=== PATIENT | male | born 1945 | race Caucasian/White ===

== ENCOUNTER 2017-03-31 05:36 | Inpatient (IN) | payer MEDICARE ==
[2017-03-31] VITALS (10 sets, daily range): BP systolic 126–156; BP diastolic 56–94
[~2017-03-31] VITALS: Ht 180.3 cm; Wt 99.3 kg
[2017-03-31] MEDS ORDERED: ASPIR 8181 MG PO (05:49)
[2017-03-31 06:01] LABS: ABSOLUTE BASOPHILS 0.1 thou/uL (0.0-0.2); ABSOLUTE EOSINOPHILS 0.2 thou/uL (0.0-0.7); ABSOLUTE LYMPHOCYTES 2.4 thou/uL (0.8-5.3); ABSOLUTE MONOCYTES 0.8 thou/uL (0.0-1.2); ABSOLUTE NEUTROPHILS 3.6 thou/uL (1.6-8.1); EOSINOPHILS 3.5 %; HEMOGLOBIN 13.6 gm/dL (14.0-18.0); LYMPHOCYTES 33.6 %; MCH 29.1 pg (26.0-34.0); MCHC 33.1 g/dL (28.0-37.0); MCV 87.8 fL (80.0-100.0); MONOCYTES 11.5 %; MPV 7.4 fl. (7.2-11.1); NUCLEATED RBCS 0 /100WBC; PLATELET COUNT* 214 thou/uL (150-400); POLYS 50.4 %; RBC 4.66 mil/uL (4.50-6.00); RDW-CV 14.3 % (10.5-14.5); WBC 7.1 thou/uL (4.0-11.0)
[2017-03-31 06:17] LABS: ANION GAP 8 mmol/L (7-16); BUN 18 mg/dL (7-18); CALCIUM 8.6 mg/dL (8.5-10.1); CHLORIDE 104 mmol/L (98-107); CO2 27 mmol/L (21-32); CREATININE 1.1 mg/dL (0.6-1.3); GLUCOSE 238 mg/dL (70-99); POTASSIUM 3.8 mmol/L (3.5-5.1); SODIUM 139 mmol/L (136-145)
[2017-03-31 06:27] LABS: ALBUMIN 3.6 g/dL (3.4-5.0); ALKALINE PHOSPHATASE 54 U/L (46-116); LIPASE 185 U/L (73-393); NT-PRO BRAIN NAT PEPTIDE 54 pg/mL (<300); SGOT 20 U/L (15-37); SGPT 43 U/L (30-65); TOTAL BILIRUBIN 0.2 mg/dL (<0.1-1.0); TOTAL PROTEIN 7.1 g/dL (6.4-8.2); TROPONIN-I LEVEL <0.06 ng/mL (<0.06)
--- NOTE | 2017-03-31 12:02 | EKG ---
[place] [address] ELECTROCARDIOGRAM REPORT Name: NICOLE GONZALEZ Room: [address] IN [facility]#: [id number] Admission: 03/31/17 Attend Phys: Nicole Atkins MD Discharge: Date of : 45 Report #: [id number] THIS REPORT FOR: //name// [facility] ED Test Date: 2017-03-31 Test Time: 06:07:41 Pat Name: NICOLE GONZALEZ Department: Room: [facility] Gender: Medical Sociologist: LIZZY Joe : 1945 Requested By: Kaia Guadalupe Order Number: [id number] Reading MD: Ceferino Fontaine Measurements Intervals [place] Rate: 82 P: 73 IN: 180 QRS: 63 QRSD: 104 T: 108 QT: 334 QTc: 390 Interpretive Statements Sinus arrhythmia Ventricular premature complex Probable left atrial enlargement Borderline repolarization abnormality No previous ECG available for comparison Electronically Signed On 03-31-2017 12:02:26 HEAD SAWYER AUTOMATIC by Ceferino Fontaine [email or web address] <ELECTRONICALLY SIGNED> By: Ceferino Fontaine MD, [facility] 03/31/17 1202 6 6 Ceferino Fontaine MD, [facility] /EPI
--- NOTE | 2017-03-31 12:02 | EKG ---
[place] [address] ELECTROCARDIOGRAM REPORT Name: NICOLE GONZALEZ Room: [address] ADM IN 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: LIZZY Joe : 1945 Requested By: Kaia Guadalupe Order Number: [id number] MD: Ceferino Fontaine Measurements Intervals [place] Rate: 90 P: 39 FL: 182 QRS: 43 QRSD: 107 T: 122 QT: 338 QTc: 414 Interpretive Statements Sinus rhythm Ventricular trigeminy Probable inferior infarct, recent Lateral leads are also involved No previous ECG available for comparison Electronically Signed On 03-31-2017 12:02:18 ROTARY DRIER FEEDER by Ceferino Fontaine [email or web address] <ELECTRONICALLY SIGNED> By: Ceferino Fontaine MD, [facility] 03/31/17 1202 0540 0540 Ceferino Fontaine MD, [facility] /EPI
[2017-03-31 13:03] LABS: CHOLESTEROL 217 mg/dL (<200); HDL CHOLESTEROL 43 mg/dL (>40); LDL CHOLESTEROL 135 mg/dL (<100); TRIGLYCERIDE 199 mg/dL (<150); VLDL 40 mg/dL (<40)
[2017-03-31 13:07] LABS: SERUM ASSESSMENT Clear
[2017-04-01] VITALS (8 sets, daily range): BP systolic 124–189; BP diastolic 58–85
[2017-04-01 03:53] LABS: HEMATOCRIT 39.4 % (42.0-52.0); HEMOGLOBIN 13.3 gm/dL (14.0-18.0); MCHC 33.7 g/dL (28.0-37.0); MCV 85.9 fL (80.0-100.0); MPV 7.7 fl. (7.2-11.1); RBC 4.58 mil/uL (4.50-6.00); WBC 10.8 thou/uL (4.0-11.0)
[2017-04-01 04:23] LABS: ALBUMIN 3.4 g/dL (3.4-5.0); CALCIUM 8.2 mg/dL (8.5-10.1); CREATININE 1.1 mg/dL (0.6-1.3); POTASSIUM 4.3 mmol/L (3.5-5.1); TOTAL BILIRUBIN 0.5 mg/dL (<0.1-1.0); TOTAL PROTEIN 6.8 g/dL (6.4-8.2)
[2017-04-01 04:49] LABS: TROPONIN-I LEVEL 10.46 ng/mL (<0.06)
--- NOTE | 2017-04-01 12:32 | EKG ---
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: : 1945 Requested By: Cesar Malhotra Order Number: [id number] Reading MD: Ceferino Fontaine Measurements Intervals [place] Rate: 84 P: 59 [place]: 181 QRS: 38 QRSD: 102 T: 162 QT: 343 QTc: 406 Interpretive Statements Sinus rhythm Ventricular trigeminy Probable left atrial enlargement Nonspecific repol abnormality, diffuse leads Baseline wander in lead(s) II,V4,V6 Compared to ECG 03/31/2017 06:07:41 Sinus arrhythmia no longer present Electronically Signed On 04-01-2017 12:32:12 CORDUROY CUTTING SUPERVISOR by Ceferino Fontaine [email or web address] <ELECTRONICALLY SIGNED> By: Ceferino Fontaine MD, FAC 04/01/17 1232 0931 Ceferino Fontaine MD, FAC /EPI
--- NOTE | 2017-04-01 12:33 | EKG ---
[place] [address] ELECTROCARDIOGRAM REPORT Name: NICOLE GONZALEZ Room: [address] ADM IN [facility]#: [id number] Admission: 03/31/17 Attend Phys: Nicole Atkins MD Discharge: Date of : 45 Report #: [id number] THIS REPORT FOR: //name// [facility] Test Date: 2017-03-31 Test Time: 18:05:18 Pat Name: NICOLE GONZALEZ Department: Room: [facility] Gender: M Picker Operator: : 1945 Requested By: Mode Gomez Order Number: [id number] Reading MD: Ceferino Fontaine Measurements Intervals [place] Rate: 92 P: 53 NM: 182 QRS: 44 QRSD: 110 T: 88 QT: 364 QTc: 451 Interpretive Statements Sinus rhythm Ventricular premature complex Probable left atrial enlargement Borderline T abnormalities, lateral leads Compared to ECG 03/31/2017 06:07:41 T-wave abnormality now present Sinus arrhythmia no longer present Electronically Signed On 04-01-2017 12:33:22 MILL TENDER by Ceferino Fontaine [email or web address] <ELECTRONICALLY SIGNED> By: Ceferino Fontaine MD, FAC 04/01/17 1233 1805 1805 Ceferino Fontaine MD, [facility] /EPI
--- NOTE | 2017-04-01 12:34 | EKG ---
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: : 1945 Requested By: Cesar Malhotra Order Number: [id number] Reading MD: Ceferino Fontaine Measurements Intervals [place] Rate: 85 P: 80 ME: 186 QRS: 51 QRSD: 100 T: 141 QT: 360 QTc: 428 Interpretive Statements Sinus rhythm Ventricular bigeminy Probable left atrial enlargement Borderline repolarization abnormality Compared to ECG 03/31/2017 06:07:41 Sinus arrhythmia no longer present Electronically Signed On 04-01-2017 12:33:50 SAW REPAIRER by Ceferino Fontaine [email or web address] <ELECTRONICALLY SIGNED> By: Ceferino Fontaine MD, [facility] 04/01/17 1233 2253 2253 Ceferino Fontaine MD, [facility] /EPI
--- NOTE | 2017-04-01 12:34 | EKG ---
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 Service Representative Teacher: KYLE : 1945 Requested By: Mode Gomez Order Number: [id number] Reading MD: Ceferino Fontaine Measurements Intervals [place] Rate: 86 P: 80 PA: 190 QRS: 35 QRSD: 99 T: 115 QT: 377 QTc: 451 Interpretive Statements Sinus rhythm Ventricular bigeminy Left atrial enlargement Nonspecific repol abnormality, lateral leads Minimal ST elevation, inferior lead 3 only Compared to ECG 03/31/2017 06:07:41 ST (T wave) deviation now present Sinus arrhythmia no longer present Electronically Signed On 04-01-2017 12:34:33 CUPOLA CHARGER INSULATION by Ceferino Fontaine [email or web address] <ELECTRONICALLY SIGNED> By: Ceferino Fontaine MD, [facility] 04/01/17 1234 0744 0744 Ceferino Fontaine MD, [facility] /EPI
[2017-04-02] VITALS (8 sets, daily range): BP systolic 97–141; BP diastolic 78–94
[2017-04-02 03:56] LABS: CALCIUM 8.6 mg/dL (8.5-10.1); POTASSIUM 4.2 mmol/L (3.5-5.1)
--- NOTE | 2017-04-02 09:31 | CARD ---
[address] [address] CARDIAC CATH REPORT Name: NICOLE GONZALEZ Room: [address] IN [facility]#: [id number] Admission: 03/31/17 Attend Phys: Nicole Atkins MD Discharge: Date of : 45 Report #: [id number] THIS REPORT FOR: //name// APPROVED REPORT Patient Details The patient is a 71 year-old male Event Personnel Mode Gomez Pest Controller, Katherine Uriostegui RN RN, Nicole Sol Monitor, Hai Salvador Scrub Indication Non-STEMI (>12 hrs to = 24 hrs), Chest pain Risk Factors Hypercholesterolemia, Coronary Artery DiseaseHypertension, History of noncompliance with medications and follow-up with cardiology. Previous Procedures/Diagnoses Previous CABGPrevious PCI, Previous GA Procedure Narrative The patient was brought urgently to the Cardiac Catheterization Laboratory and was prepped and draped in a sterile manner. The right femoral was infiltrated with 1% Lidocaine subcutaneous anesthesia. A 6fr Ultimum Sheath sheath was inserted into the . Coronary angiography was performed using coronary diagnostic catheters. The right coronary system was accessed and visualized with a Diagnostic - JR4 catheter. The left coronary system was accessed and visualized with a Diagnostic - JL4 catheter. The left ventricle was accessed and visualized with a Diagnostic - PIGTAIL catheter. The patient tolerated the procedure well and there were no complications associated with the procedure. Intraoperative Conscious Sedation Sedation start time: 2006 Case end Time: 2107 Fentanyl 50 mcg Fluoro Time: 19.9 minutes Dose: DAP [id number] cGycm2 3244 mGy Contrast Type and Amount: Visipaque 270 [place] [address] CARDIAC CATH REPORT Name: NICOLE GONZALEZ Room: [address]#: [id number] Admission: 03/31/17 Attend Phys: Nicole Atkins MD Discharge: Date of : 45 Report #: [id number] The patient's coronary anatomy is right dominant. Diagnostic Cath Left Main Patent vessel, with mild disease at the distal segment. LAD There is a severe obstruction in the proximal segment, 70%. The MAGALLANES graft has a 70% stenosis at the distal anastomotic site to the distal LAD. There is competitive flow coming from the capitan grande band LAD as well as retrograde flow from the first diagonal bypass. Diagonal 1 There is a patent radial artery bypass with an end-to-side anastomosis to the proximal diagonal artery. After the anastomosis, there is both retrograde and antegrade blood flow. Circumflex There is a severe proximal stenosis, 90%, supplies a moderate-sized second OM vessel. OM1 Severe stenosis at the proximal segment. There appears to be of vein graft that was previously stented, apparently grafted to an OM1 vessel. This vein graft is totally occluded within the stented region. OM2 Patent vessel, with no flow-limiting lesions. Right Coronary Dominant vessel with a total occlusion. R PDA There is a patent vein graft with an end-to-side anastomosis to the PDA. RPLV Occluded vessel. The mid and distal segments fill via collateral circulation from RV marginals and left circumflex artery. Left Ventriculography Left Ventriculography was not performed. An LVEDP was measured and there is no gradient across the outflow tract. Hemodynamics The aortic pressure is 145/77 mmHg with a mean of 101 mmHg. The left ventricular pressure is 145/8 mmHg with a mean of mmHg. The left ventricular end diastolic pressure is 29 mmHg. PCI Technique Lesion Anticoagulation was achieved with Angiomax. Patient was preloaded with Angiomax IV 14 ml. Percutaneous coronary intervention was performed on the saphenous vein graft to OM1 - previously stented. The lesion stenosis prior to intervention was 19649% with YANELI 0 flow. A 6Fr AR 1 Guide Catheter was used to engage the ostium. A IG: Luge Wire 180 Interventional Guidewire was used to cross the lesion. BALLOON DILATION A Balloon catheter Trek RX 2.5 X 12 was inserted and inflated up to [facility] [address] [place] [address] CARDIAC CATH REPORT Name: NICOLE GONZALEZ Room: [address] IN [facility]#: [id number] Admission: 03/31/17 Attend Phys: Nicole Atkins MD Discharge: Date of : 45 Report #: [id number] 10.00atm for 17seconds. Additional Inflation: 10.00atm for 10seconds. Additional Inflation: 10.00atm for 11seconds. 10 FANNIE FOR 9 SEC 10 FANNIE FOR 9 SEC Final angiography reveals 100 % stenosis with YANELI 1 flow. COMMENTS After the initial balloon dilatation throughout the vein graft, injections revealed diminished flow, with heavy clot burden throughout the vein graft. The patient at this time was pain free, with onset of symptoms greater than 15 hours prior to presentation to the cath lab radiological technologist. It was decided to discontinue this case and treat medically. PCI Technique Lesion 2 Percutaneous Coronary Intervention was performed on the proximal circumflex artery segment. Patient was preloaded with Angiomax IV 14 ml. The lesion stenosis prior to intervention was 90% with YANELI 3 flow. A 6FR XB 3.0 100CM Guide Catheter was used to engage the ostium. A IG: Luge Wire 180 Interventional Guidewire was used to cross the lesion. Balloon Dilation A Balloon catheter Trek RX 2.5 X 12 was inserted and inflated up to 12.00atm for 13seconds. Stent Deployment A stent Xience Alpine RX 2.5X15 was inserted and inflated up to 16.00atm for 14seconds. Post Stent Deployment Balloon Dilation A Balloon catheter NC Trek RX 2.75 X 12 was inserted and inflated up to 18.00atm for 18seconds. Additional Inflation: 18.00atm for 16seconds. Final angiography reveals 0 % stenosis with YANELI 3 flow. Conclusion 1. Successful insertion of a drug-eluting stent into the proximal left circumflex artery. 2. There is a MAGALLANES graft with an end-to-side anastomosis to the distal LAD, with an apparent 70% stenosis at the anastomotic site. 3. Patent radial artery bypass with an end-to-side anastomosis to the first diagonal artery, there is retrograde flow down the LAD. [address] [address] CARDIAC CATH REPORT Name: NICOLE GONZALEZ Room: [facility] IN .R.#: [id number] Admission: 03/31/17 Attend Phys: Nicole Atkins MD Discharge: Date of : 45 Report #: [id number] 4. Patent SVG with an end-to-side anastomosis to the PDA. 5. Failed angioplasty of a total occlusion of SVG, previously stented, probably supplying the first OM. The capitan grande band vessel appears to be filled via collateral circulation from diagonal arteries. 6. Aggressive risk factor management. <ELECTRONICALLY SIGNED> By: Mode Gomez MD 04/02/17930 0 0Mode Gomez MD /INF
--- NOTE | 2017-04-02 15:57 | 2DMMODE ---
[facility] [address] [place] [address] 2 D/M-MODE ECHOCARDIOGRAM Name: NICOLE GONZALEZ Room: [address] IN .R.#: [id number] Admission: 03/31/17 Attend Phys: Nicole Atkins, Discharge: Date of : 45 Date of Service: 04/02/17 1556 Report #: [id number] THIS REPORT FOR: //name// APPROVED REPORT Study performed: 04/02/2017 14:28:50 EXAM: Comprehensive 2D, Doppler, and color-flow Echocardiogram BSA: 2.19 Other Information Study Quality: Good Risk Factors: Cardiac Risk Factors: HTN, Hyperlipidemia Indications Non STEMI Left Ventricle Left ventricle is grossly normal size. There is abnormal segmental wall motion with subtle distal septal and anteroapical hypokinesis There is normal left ventricular wall thickness. Left ventricular systolic function is borderline. LVEF is 50-55%. Grade I - abnormal relaxation pattern. Right Ventricle The right ventricle is normal size. The right ventricular systolic function is normal. Atria The left atrium size is normal. Aortic Valve Mild aortic valve sclerosis. No aortic regurgitation is present. There is no aortic valvular stenosis. Mitral Valve The mitral valve is normal in structure. Mild mitral regurgitation. Tricuspid Valve The tricuspid valve is normal in structure. [place] [address] 2 D/M-MODE ECHOCARDIOGRAM Name: NICOLE GONZALEZ Room: [address] IN M.R.#: [id number] Admission: 03/31/17 Attend Phys: Nicole Atkins, Discharge: Date of : 45 Date of Service: 04/02/17 1556 Report #: [id number] Great Vessels The aortic root is normal in size. IVC is normal in size and collapses >50% with inspiration. Pericardium There is no pericardial effusion. <Conclusion> Left ventricle is grossly normal size. There is normal left ventricular wall thickness. Left ventricular systolic function is borderline. LVEF is 50-55%. Grade I - abnormal relaxation pattern. The right ventricle is normal size. The left atrium size is normal. Mild aortic valve sclerosis. The mitral valve is normal in structure. Mild mitral regurgitation. IVC is normal in size and collapses >50% with inspiration. There is no pericardial effusion. There is abnormal segmental wall motion with subtle distal septal and anteroapical hypokinesis <ELECTRONICALLY SIGNED> By: Omkar Al MD, [facility] 04/02/17 1556 1556 1556 Omkar Al MD, FACC /INF
[2017-04-02] MEDS ORDERED: ATORVASTATIN CA40 MG PO (16:21)
[2017-04-02] MEDS ORDERED: PLAVIX 75 MG TA75 M1 PO (16:23)
[2017-04-02] MEDS ORDERED: ZETIA10 MG PO (16:28)
[2017-04-02] MEDS ORDERED: TOPROL XL25 MG PO (16:30)
[2017-04-02] MEDS ORDERED: NITROSTAT0.4 M1 SUBLING (16:33)
--- NOTE | 2017-04-04 08:46 | CON ---
[address] [address] CONSULTATION Name: NICOLE GONZALEZ Room: [address] IN [facility]#: [id number] Admission: 03/31/17 Attend Phys: Nicole Atkins MD Discharge: 04/02/17 Date of : 45 Report #: [id number] THIS REPORT FOR: //name// CC: Nicole Brar DATE OF SERVICE: 03/31/2017 CHIEF COMPLAINT: Chest pain. HISTORY OF PRESENT ILLNESS: The patient is a 71-year-old male who was awoken up out of bed at 0400 this morning with a sudden onset of central chest discomfort radiating to his left arm and shoulder. It was severe, 10/10. He did not have any nitroglycerin at home, but by the time he got to the Emergency Room, it had calmed down. It was associated with mild diaphoresis, but no shortness of breath. He has been feeling relatively well, but more fatigued over the last several days. 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 Separately, he has also had left shoulder surgery and it was unsure if his symptoms were initially related to this. He presents in a sinus rhythm with small Q waves in the inferior leads and normal ST segments. He presents with no GI symptoms of nausea, vomiting, hematemesis, or melena. He denies edema. He is without orthopnea or PND. PAST MEDICAL HISTORY: He initially had what sounds like an out of hospital arrest while in [place] and he had a PCI only and then had another event shortly thereafter within the next month or 2 and details of this are not available, then he had a separate non-STEMI and was transferred to [facility] where he underwent a 4-vessel CABG. In 2015, he did have a PCI to vessels not known at [place]. Throughout all of this, he has never had significant cardiovascular followup. He only takes aspirin. He has a history of untreated hyperlipidemia. HE HAD BEEN ON A STATIN, BUT DEVELOPED MUSCLE CRAMPS AND STOPPED TAKING THEM. He is not known to be a diabetic. He does not generally [place] [address] CONSULTATION Name: NICOLE GONZALEZ Room: [address]#: [id number] Admission: 03/31/17 Attend Phys: Nicole Atkins MD Discharge: 04/02/17 Date of : 45 Report #: [id number] ALLERGIES: INCLUDE ACETAMINOPHEN, HYDROCODONE, AND CORTISONE. SOCIAL HISTORY: He is . He is a former smoker for about 40 pack years. He drinks infrequently. FAMILY HISTORY: Positive for high blood pressure. PAST SURGICAL HISTORY: Prior inguinal hernia, left shoulder surgery, umbilical hernia. REVIEW OF SYSTEMS: GENERAL: No fevers or chills. PULMONARY: No shortness of breath, no history of asthma or emphysema. GASTROINTESTINAL: No nausea, vomiting, hematemesis or melena. GENITOURINARY: No dysuria or hematuria. MUSCULOSKELETAL: Positive joint pain, neck pain. ENDOCRINE: He is not known to be a diabetic. Denies polyuria or polydipsia. He denies history of thyroid disease. PSYCHIATRIC: No depression or anxiety. NEUROLOGIC: Denies numbness or weakness. SKIN: No rashes. PHYSICAL EXAMINATION: VITAL SIGNS: Blood pressure is 126/81, pulse 82, respiratory rate 16, O2 sats 100% 2 liters. GENERAL: This is a pleasant elderly male. He is alert, oriented, in no apparent distress. NECK: Supple. No jugular venous distention. Upstrokes are normal. CARDIOVASCULAR: Regular. I could not hear a murmur. There is no S3. LUNGS: Clear to auscultation. ABDOMEN: Soft, nontender. EXTREMITIES: No peripheral edema. SKIN: Warm. NEUROLOGIC: There are no focal deficits. PSYCHIATRIC: The patient has appropriate mood and affect. ELECTROCARDIOGRAM: Initial ECG demonstrates sinus rhythm with very subtle ST-segment elevation in lead 3 only with no reciprocal changes and normal ST segments. There is a very subtle ST-segment depression in lead V1. Second ECG shows normal ST segments, PVCs. ECG this morning demonstrates sinus rhythm with PVCs and normal ST segments. T-wave inversion in leads aVL. LABORATORY DATA: Cardiac troponin level was 0.06 x 1 set. Sodium is 139, potassium is 3.8, chloride is 104, CO2 is 27, BUN is 18, creatinine is 1.1. Troponin I is 0.06. BNP is 54. Hemoglobin is 13.6, white blood cell count is [facility] [address] [place] [address] CONSULTATION Name: NICOLE GONZALEZ Room: [address]#: [id number] Admission: 03/31/17 Attend Phys: Nicole Atkins MD Discharge: 04/02/17 Date of : 45 Report #: [id number] 7.1. Chest x-ray shows no acute cardiopulmonary disease. CTA: No evidence of dissection or PE. IMPRESSION: 1. Unstable angina. His ECG showed no diagnostic ST-segment abnormalities and his cardiac troponin levels are normal today, but we will check his second set right now and his symptoms were partially improved with nitroglycerin, so I will start him on an IV nitroglycerin drip and IV heparin. 2. Coronary artery disease, status post coronary artery bypass grafting. He apparently does not follow regularly with Cardiology. We will try to obtain some records from [facility]. Seemingly, that is where he had had his last care. 3. Hyperlipidemia. This has been untreated throughout the duration of his cardiovascular history. He would probably benefit from intermittent statin use perhaps once or twice weekly. We will check a lipid profile. 4. Degenerative joint disease. Theoretically, this could also be causing his symptoms, but given his acute presentation, I would have to think that his symptoms seem predominantly cardiac in nature. Depending on his cardiac biomarkers, it will be determined whether or not we will proceed with the cardiac catheterization or stress testing, but more likely cardiac catheterization given his risk factor profile. <ELECTRONICALLY SIGNED> By: Ceferino Fontaine MD, FACC 04/04/17 0846 1042 [id number] Fontaine MD, FACC /nt
[2017-04-17] MEDS ORDERED: POTASSIUM20 PO (10:08)
[2017-04-17] MEDS ORDERED: LASIX 20 MG TAB20 MG PO (10:08)
[2017-07-24] MEDS ORDERED: NITROGLYCERIN0.4 MG SUBLING (13:57)
[2017-07-24] MEDS ORDERED: IMDUR 30 MG TAB30 M1 PO (20:52)
[2017-07-24] MEDS ORDERED: METOPROLOL SUCC25 M1 PO (20:52)
== END 2017-04-02 17:18 | disposition home or self-care (01) | DRG 246 ==
LOC: M.ERS 05:36 → M.TBA-ER 07:36 → M.3W 07:36 → M.2W 08:32 → M.ICU 21:12 → M.3W 04-01 12:15
PROVIDERS: Emergency Medicine; Internal Medicine Cardiovascular Disease; ADMIT Internal Medicine
DX: I21.4 Non-ST elevation (NSTEMI) myocardial infarction (principal); I50.33 Acute on chronic diastolic (congestive) heart failure; I25.110 Atherosclerotic heart disease of native coronary artery with unstable angina pectoris; J44.9 Chronic obstructive pulmonary disease, unspecified; K21.9 Gastro-esophageal reflux disease without esophagitis; I25.5 Ischemic cardiomyopathy; I11.9 Hypertensive heart disease without heart failure; E78.5 Hyperlipidemia, unspecified; M19.90 Unspecified osteoarthritis, unspecified site; I25.2 Old myocardial infarction; Z95.5 Presence of coronary angioplasty implant and graft; Z87.891 Personal history of nicotine dependence; Z88.8 Allergy status to other drugs, medicaments and biological substances; Z86.74 Personal history of sudden cardiac arrest; Z88.6 Allergy status to analgesic agent; Z79.82 Long term (current) use of aspirin

== ENCOUNTER 2017-04-18 07:12 | Observation (INO) | payer MEDICARE ==
[2017-04-18] VITALS (13 sets, daily range): BP systolic 99–144; BP diastolic 48–78
[~2017-04-18] VITALS: Ht 180.3 cm; Wt 91.0 kg
--- NOTE | ~2017-04-18 | H ---
[address] [address] HISTORY AND PHYSICAL Name: NICOLE GONZALEZ Room: [address] Abdelrahman Adrian#: [id number] Admission: 04/18/17 Attend Phys: Omkar Al MD, Discharge: 04/19/17 Date of : 45 Report #: [id number] THIS REPORT FOR: //name// Please refer to the History and Physical performed in the physician's office. By: [id number] Records Staff ENMANUEL /CHANA
[~2017-04-18 07:12] MED LIST: ASPIR 8181 MG PO; ATORVASTATIN CA40 MG PO; LASIX 20 MG TAB20 MG PO; NITROSTAT0.4 M1 SUBLING; PLAVIX 75 MG TA75 M1 PO; POTASSIUM20 PO; TOPROL XL25 MG PO; ZETIA10 MG PO
[2017-04-18 07:53] LABS: HEMATOCRIT 41.9 % (42.0-52.0); HEMOGLOBIN 14.3 gm/dL (14.0-18.0); MCHC 34.1 g/dL (28.0-37.0); MCV 85.2 fL (80.0-100.0); MPV 7.9 fl. (7.2-11.1); RBC 4.91 mil/uL (4.50-6.00); RDW-CV 13.9 % (10.5-14.5); WBC 8.1 thou/uL (4.0-11.0)
[2017-04-18 08:03] LABS: APTT 26.2 Seconds (25.0-31.3); INR 1.1; PROTIME 10.5 Seconds (9.20-11.50)
[2017-04-18 08:04] LABS: ANION GAP 14 mmol/L (7-16); BUN 30 mg/dL (7-18); CALCIUM 9.1 mg/dL (8.5-10.1); CHLORIDE 99 mmol/L (98-107); CO2 23 mmol/L (21-32); CREATININE 1.6 mg/dL (0.6-1.3); GLUCOSE 246 mg/dL (70-99); POTASSIUM 3.9 mmol/L (3.5-5.1); SODIUM 136 mmol/L (136-145)
[2017-04-18 08:08] LABS: ALBUMIN 4.1 g/dL (3.4-5.0); ALKALINE PHOSPHATASE 62 U/L (46-116); CHOLESTEROL 103 mg/dL (<200); HDL CHOLESTEROL 46 mg/dL (>40); LDL CHOLESTEROL 23 mg/dL (<100); SGOT 26 U/L (15-37); SGPT 40 U/L (30-65); TC:HDL 2.2 Ratio (Not establshd); TOTAL BILIRUBIN 0.6 mg/dL (<0.1-1.0); TOTAL PROTEIN 8.1 g/dL (6.4-8.2); TRIGLYCERIDE 170 mg/dL (<150); VLDL 34 mg/dL (<40)
[2017-04-18 08:09] LABS: SERUM ASSESSMENT Clear
--- NOTE | 2017-04-18 16:15 | NUR ---
PT HAS MINIMAL BLEEDING AT THE CATH SITE. CHANGED DRESSING AND PT IS ABLE TO MOVE LEG AT THIS TIME. NS STILL INFUSING AT 125ML/HR.
[2017-04-18 17:08] LABS: GLYCOHEMOGLOBIN (HGB A1C) 7.1 % (4.8-5.6)
--- NOTE | 2017-04-18 17:57 | EKG ---
[place] [address] ELECTROCARDIOGRAM REPORT Name: NICOLE GONZALEZ Room: [address] IN R.#: [id number] Admission: 04/18/17 Attend Phys: Omkar Al MD, Discharge: Date of : 45 Report #: [id number] THIS REPORT FOR: //name// [facility] Test Date: 2017-04-18 Test Time: 07:56:58 Pat Name: NICOLE GONZALEZ Department: Room: [facility] Gender: M Neurology Hospitalist: : 1945 Requested By: Omkar Al Order Number: [id number] Reading MD: Omkar Al Measurements Intervals [place] Rate: 92 P: 70 [place]: 193 QRS: 41 QRSD: 111 T: -18 QT: 396 QTc: 490 Interpretive Statements Sinus rhythm Ventricular bigeminy Borderline T abnormalities, inferior leads Compared to ECG 04/01/2017 07:44:06 T-wave abnormality now present Atrial abnormality no longer present Early repolarization no longer present ST (T wave) deviation no longer present Electronically Signed On 04-18-2017 17:57:15 CDT by Omkar Al [email or web address] <ELECTRONICALLY SIGNED> By: Omkar Al MD, [facility] 04/18/17 1757 0756 0756 Omkar Al MD, [facility] /EPI
--- NOTE | 2017-04-18 18:01 | EKG ---
[place] [address] ELECTROCARDIOGRAM REPORT Name: NICOLE GONZALEZ Room: [address] [place] R.#: [id number] Admission: 04/18/17 Attend Phys: Omkar Al MD, Discharge: Date of : 45 Report #: [id number] THIS REPORT FOR: //name// [facility] Test Date: 2017-04-18 Test Time: 13:43:54 Pat Name: NICOLE GONZALEZ Department: Room: [facility] Gender: M Inking Machine Tender: : 1945 Requested By: Omkar Al Order Number: [id number] Camilla MD: Omkar Al Measurements Intervals [place] Rate: 54 P: 89 [place]: 197 QRS: 48 QRSD: 114 T: -12 QT: 393 QTc: 373 Interpretive Statements Sinus rhythm Ventricular bigeminy Borderline intraventricular conduction delay Borderline T wave abnormalities Minimal ST elevation, anterior leads Baseline wander in lead(s) I,II,V2,V3,V4,V5,V6 Compared to ECG 04/01/2017 07:44:06 T-wave abnormality now present Atrial abnormality no longer present Early repolarization no longer present ST (T wave) deviation still present Electronically Signed On 04-18-2017 18:01:35 CDT by Omkar Al [email or web address] <ELECTRONICALLY SIGNED> By: Omkar Al MD, [facility] 04/18/17 1801 1343 1343 Omkar Al MD, [facility] /EPI
[2017-04-19] VITALS: BP 104/57
[2017-04-19 04:00] VITALS: BP 140/56
[2017-04-19 04:31] LABS: HEMATOCRIT 36.8 % (42.0-52.0); HEMOGLOBIN 12.6 gm/dL (14.0-18.0); MCH 29.2 pg (26.0-34.0); MCHC 34.3 g/dL (28.0-37.0); MCV 85.2 fL (80.0-100.0); RBC 4.31 mil/uL (4.50-6.00); RDW-CV 14.2 % (10.5-14.5)
[2017-04-19 04:40] LABS: CALCIUM 8.2 mg/dL (8.5-10.1); CREATININE 1.2 mg/dL (0.6-1.3); POTASSIUM 4.6 mmol/L (3.5-5.1); TROPONIN-I LEVEL 0.56 ng/mL (<0.06)
--- NOTE | 2017-04-19 04:59 | NUR ---
ASSUMED CARE OF PT AT 1900 ALERT AND ORIENTED X4, VS AND ASSESSMENT STABLE. R GROIN SURGICAL WOUND CDI WITHOUT HEMATOMA. NSR WITH SOME PVC'S. PT DENIED ANY COMPLAINTS AND SLEPT THROUGH THE NIGHT. WILL CONTINUE PLAN OF CARE.
[2017-04-19 09:00] VITALS: BP 124/68
[2017-04-19 10:00] VITALS: BP 124/68
--- NOTE | 2017-04-19 11:45 | NUR ---
ASSUMED PT CARE AT 0700 PT IS ALERT AND ORIENTED X 4 PT DENIES PAIN OR SOA ON RA, PT IS UP AD MUNIR PT IS NOT A FALL RISK, PT RIGHT GROIN SITE IS CLEAN DRY INTACT PT IS SR PVC ON THE MONITOR, CARDIOLOGY SAW PT AND OK FOR PT TO DISCHARGE, IV REMOVED WILL CONTINUE TO MONITOR
--- NOTE | 2017-04-19 15:21 | EKG ---
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: MR : 1945 Requested By: Omkar Al Order Number: [id number] Reading MD: Omkar Al Measurements Intervals [place] Rate: 73 P: 69 [place]: 188 QRS: 35 QRSD: 115 T: -16 QT: 402 QTc: 443 Interpretive Statements Sinus rhythm Multiple ventricular premature complexes Nonspecific intraventricular conduction delay Possible inferior infarct, age indeterminate Compared to ECG 04/18/2017 13:43: ST (T wave) deviation no longer present Electronically Signed On 04-19-2017 15:21:14 CDT by Omkar Al [email or web address] <ELECTRONICALLY SIGNED> By: Omkar Al MD, [facility] 04/19/17 1521 0532 0532 Omkar Al MD, [facility] /EPI
--- NOTE | 2017-04-19 16:33 | CARD ---
[address] [address] CARDIAC CATH REPORT Name: LISANICOLE Hina Room: [address] Abdelrahman Adrian#: [id number] Admission: 04/18/17 Attend Phys: Omkar Al MD, Discharge: 04/19/17 Date of : 45 Report #: [id number] THIS REPORT FOR: //name// APPROVED REPORT Study performed: 04/18/2017 07:37:54 Patient Details Patient Status: Out-Patient Room #: The patient is a 71 year-old male Event Personnel Omkar Al Renal Social Worker, Katherine Uriostegui RN Dough Sheeter, Zaida Soriano RTR ScrubJens Anthony ARRT (R) Monitor Procedures Performed SHAHZAD Place w/wo Plasty Single LAD; left heart catheterization selective coronary arteriography graft study and percutaneous coronary intervention Indication Unstable angina Risk Factors Hypercholesterolemia, Hypertension Previous Procedures/Diagnoses Previous PCI, Previous CA Admission/Lab Medications/Medications given during procedure Angiomax bolus and infusion Procedure Narrative The patient was brought electively to the Cardiac Catheterization Laboratory and was prepped and draped in a sterile manner. A [place] 6 FR sheath was inserted into the Right Femoral Artery. Coronary angiography was performed using coronary diagnostic catheters. The right coronary system was accessed and visualized with a Diagnostic JR 4 catheter. The left coronary system was accessed and visualized with a Diagnostic JL 4 catheter. The left ventricle was accessed and visualized with a Diagnostic Angled Pig catheter. Closure device was deployed with a Fr Angioseal. The patient tolerated the procedure well and there were no complications associated with the procedure. Intra[place] [address] CARDIAC CATH REPORT Name: NICOLE GONZALEZ Room: [address] Abdelrahman Adrian#: [id number] Admission: 04/18/17 Attend Phys: Omkar Al MD, Discharge: 04/19/17 Date of : 45 Report #: [id number] Sedation start time: 9:55 Case end Time: 11:02 Versed 1 mg Fluoro Time: 18.4 minutes Dose: DAP 803978 cGycm2 2453 mGy Contrast Type and Amount: Visipaque 300 ml Coronary Angiography The patient's coronary anatomy is right dominant. [place] Artery Percent Stenosis #1 widely patent MAGALLANES graft to the LAD with 95% distal anastomotic stenosis #2 widely patent vein graft to the diagonal with retrograde filling of the LAD #3 recently defined widely patent vein graft to the dominant right coronary artery Diagnostic Cath Left Main 10% distal narrowing LAD 90% tubular proximalmid LAD stenosis with reciprocal flow distally reflecting patent grafts Circumflex Widely patent proximal stent with 40% narrowing of the midportion of the first marginal branch Right Coronary 100% proximal occlusion Left Ventriculography Left Ventriculography was not performed. Hemodynamics The aortic pressure is 106/60 mmHg with a mean of 74 mmHg. The left ventricular pressure is 107/2 mmHg with a mean of mmHg. The left ventricular end diastolic pressure is 6 mmHg. There was no gradient across the aortic valve upon pullback. PCI Technique Lesion Anticoagulation was achieved with Angiomax. Patient was preloaded with Angiomax IV 13.5 ml. Percutaneous coronary intervention was performed on the mid left anterior descending artery segment. The lesion stenosis prior to intervention was 90% with YANELI 2 flow. A 6F XB LAD 3.5 Guide Catheter was used to engage the ostium. A IG: BMW 190cm Interventional Guidewire was [place] [address] CARDIAC CATH REPORT Name: NICOLE GONZALEZ Room: [address]#: [id number] Admission: 04/18/17 Attend Phys: Omkar Al MD, Discharge: 04/19/17 Date of : 45 Report #: [id number] BALLOON DILATION A Balloon catheter Trek RX 2.25 X 12 was inserted and inflated up to 12.00atm for 14seconds. Additional Inflation: 14.00atm for 14seconds. Additional Inflation: 14.00atm for 12seconds. STENT DEPLOYMENT A drug-eluting stent Xience Alpine RX 2.25X28, 2.5x23 was inserted and inflated up to 10.00atm for 14seconds. POST STENT DEPLOYMENT BALLOON DILATION A Balloon catheter NC Trek RX 2.25x12 was inserted and inflated up to 14.00atm for 13seconds. Additional Inflation: 16.00atm for 13seconds. Additional Inflation: 22.00atm for 13seconds. Final angiography reveals 10 % stenosis with YANELI 3 flow. PCI Technique Lesion 2 Percutaneous Coronary Intervention was performed on the proximal left anterior descending artery segment. Patient was preloaded with Angiomax IV 13.5 ml. Percutaneous coronary intervention was performed on the proximal left anterior descending artery segment. A IG: BMW 190cm Interventional Guidewire was used to cross the lesion. Stent Deployment A drug-eluting stent Xience Alpine RX 2.5X23 was inserted and inflated up to 10atm for 16seconds. Additional Inflation: 12atm for 12seconds. Additional Inflation: 10atm for 12seconds. Post Stent Deployment Balloon Dilation A Balloon catheter NC Trek RX 2.25x12 was inserted and inflated up to 18atm for 12seconds. Conclusion #1 significant multivessel coronary artery disease characterized by the following: A 10% distal left main coronary narrowing, B 90% tubular proximalmid LAD stenosis with YANELI 2 flow to the distal vessel, C nondominant circumflex with a widely patent proximal stent and 40% narrowing of the midportion of the first marginal branch, D Total occlusion of the [place] [address] CARDIAC CATH REPORT Name: NICOLE GONZALEZ Hina Room: [address] Abdelrahman Adrian#: [id number] Admission: 04/18/17 Attend Phys: Omkar Al MD, Discharge: 04/19/17 Date of : 45 Report #: [id number] #2 graft study characterized by the following: A widely patent MAGALLANES graft to the LAD with 95% distal anastomotic stenosis, B widely patent vein graft to the dominant right coronary artery as recently defined, C widely patent vein graft the diagonal with retrograde filling of the LAD #3 normal left-sided hemodynamic study #4 successful percutaneous coronary intervention with deployment of sequential drug-eluting stents at the site of 90% tubular proximalmid LAD stenosis with 10% residual narrowing following stent deployment and YANELI-3 flow to the distal vessel Recommendations Daily ASA with Plavix for at least one year Cardiac Risk Reduction Program Aggressive Medical Therapy Medications Administered Aspirin (any) Clopidogrel Diagnostic Cath Approved by: Omkar Al MD Date/Time: 04/19/17 at 1632 hrs. <ELECTRONICALLY SIGNED> By: Omkar Al MD, FACC 04/19/171631 31 31Omkar Al MD, FAC /INF
--- NOTE | 2017-04-19 17:14 | D ---
[address] [address] DISCHARGE SUMMARY Name: NICOLE GONZALEZ Room: [address] Abdelrahman Adrian#: [id number] Admission: 04/18/17 Attend Phys: Omkar Al MD, Discharge: 04/19/17 Date of : 45 Report #: [id number] THIS REPORT FOR: //name// CC: Omkar Fontaine MD LOCATED WITHIN [facility] DATE OF SERVICE: 04/19/2017 FINAL DISCHARGE DIAGNOSES: 1. Unstable angina. 2. Status post recent myocardial infarction. 3. Status post prior stenting of the circumflex with stenting of the left anterior descending on 04/18/2017. 4. Hypertension. 5. Hyperlipoproteinemia. 6. Ischemic cardiomyopathy. PROCEDURES: 04/18/2017-left heart catheterization, selective coronary arteriography, graft study, and percutaneous coronary intervention with deployment of sequential drug-eluting stents at the site of 90% tubular proximal-mid LAD stenosis. The patient is a pleasant 71-year-old male who presented several weeks ago with acute anterolateral infarction and underwent stenting of the igiugig circumflex. He had high-grade proximal and mid LAD lesions noted. There was a patent MAGALLANES graft to the LAD with a 95% distal anastomotic stenosis noted. He has continued to note some chest and arm discomfort since the prior procedure and dyspnea on exertion. In that context, recatheterization was performed on 04/18/2017. That study revealed a widely patent circumflex stent with a widely patent vein graft to the diagonal. The previously constructed vein graft to the circumflex was occluded. He had a patent MAGALLANES graft to the LAD with 95% distal anastomotic stenosis. There was 90% tubular proximal-mid LAD stenosis. I elected to proceed with intervention on the LAD through the igiugig vessel, deploying one 2.25 x 28 and one 2.5 x 23 Xience Alpine drug-eluting stents sequentially from distal to proximal with 10% residual narrowing and YANELI 3 flow of the distal vessel. The patient did well post-procedurally with disappearance of the previously noted chest and arm discomfort on exertion. He was continued on dual antiplatelet therapy as well as therapy directed at his hyperlipoproteinemia and hypertension. He ambulated in the hallways without difficulty with good hemostasis at the right femoral site of catheterization. He was discharged to home on the following medications: Aspirin 81 mg daily, atorvastatin 40 mg at bedtime, clopidogrel 75 mg daily with an additional 600 mg given periprocedurally, Zetia 10 mg daily, furosemide 20 mg daily, metoprolol succinate 25 mg daily, potassium chloride 20 mEq daily and p.r.n. [place]ling[place] [address] DISCHARGE SUMMARY Name: LISANICOLE Room: [address] Abdelrahman Adrian#: [id number] Admission: 04/18/17 Attend Phys: Omkar Al MD, Discharge: 04/19/17 Date of : 45 Report #: [id number] He is scheduled to return to see Dr. Fontaine on 05/02/2017, at 1330 hours. Thus, the patient is discharged to home in stable condition on the aforementioned medications with followup as iterated above. <ELECTRONICALLY SIGNED> By: Omkar Al MD, FACC 04/19/17 1714 0920 0949Omkar Al MD, FAC /nt
[2017-07-24] MEDS ORDERED: NITROGLYCERIN0.4 MG SUBLING (13:57)
[2017-07-24] MEDS ORDERED: IMDUR 30 MG TAB30 M1 PO (20:52)
[2017-07-24] MEDS ORDERED: METOPROLOL SUCC25 M1 PO (20:52)
== END 2017-04-19 12:14 | disposition home or self-care (01) ==
LOC: M.CL 07:12 → M.2W 11:19 → M.TBA-CV 11:19 → M.2W 11:47
PROVIDERS: ADMIT Internal Medicine
DX: I25.110 Atherosclerotic heart disease of native coronary artery with unstable angina pectoris (principal); I25.5 Ischemic cardiomyopathy; I25.2 Old myocardial infarction; I10 Essential (primary) hypertension; E78.5 Hyperlipidemia, unspecified; E78.00 Pure hypercholesterolemia, unspecified; I50.22 Chronic systolic (congestive) heart failure; J44.9 Chronic obstructive pulmonary disease, unspecified; I71.4 Abdominal aortic aneurysm, without rupture; Z87.891 Personal history of nicotine dependence; Z95.1 Presence of aortocoronary bypass graft

== ENCOUNTER → 2017-06-13 | Outpatient (CLI) | payer MEDICARE ==
[~2017-06-13] MED LIST changes: +IMDUR 30 MG TAB30 M1 PO; +METOPROLOL SUCC25 M1 PO; +NITROGLYCERIN0.4 MG SUBLING
[2017-06-13 08:23] LABS: CALCIUM 8.9 mg/dL (8.5-10.1); CREATININE 1.3 mg/dL (0.6-1.3); POTASSIUM 4.1 mmol/L (3.5-5.1)
== END ==
LOC: M.LAB 07:47
PROVIDERS: Internal Medicine Cardiovascular Disease
DX: I49.3 Ventricular premature depolarization (principal)

== ENCOUNTER → 2017-07-04 | Outpatient (CLI) | payer MEDICARE ==
[2017-07-04 08:43] LABS: CALCIUM 8.7 mg/dL (8.5-10.1); CREATININE 1.3 mg/dL (0.6-1.3); POTASSIUM 4.3 mmol/L (3.5-5.1)
== END ==
LOC: M.LAB 08:04
PROVIDERS: Internal Medicine Cardiovascular Disease
DX: I25.10 Atherosclerotic heart disease of native coronary artery without angina pectoris (principal)

== ENCOUNTER → 2017-07-24 | Outpatient (CLI) | payer MEDICARE ==
[~2017-07-24] VITALS: Ht 180.3 cm; Wt 88.5 kg
[2017-07-24] VITALS (7 sets, daily range): BP systolic 118–139; BP diastolic 56–74
[2017-07-24 13:57] LABS: HEMATOCRIT 41.6 % (42.0-52.0); HEMOGLOBIN 13.7 gm/dL (14.0-18.0); MCH 28.8 pg (26.0-34.0); MCV 87.2 fL (80.0-100.0); MPV 7.8 fl. (7.2-11.1); RBC 4.77 mil/uL (4.50-6.00); RDW-CV 15.1 % (10.5-14.5); WBC 7.2 thou/uL (4.0-11.0)
[2017-07-24 14:07] LABS: APTT 25.4 Seconds (25.0-31.3); INR 1.1; PROTIME 10.4 Seconds (9.20-11.50)
[2017-07-24 14:08] LABS: ANION GAP 12 mmol/L (7-16); BUN 19 mg/dL (7-18); CALCIUM 9.2 mg/dL (8.5-10.1); CHLORIDE 106 mmol/L (98-107); CO2 24 mmol/L (21-32); CREATININE 1.1 mg/dL (0.6-1.3); GLUCOSE 110 mg/dL (70-99); POTASSIUM 3.9 mmol/L (3.5-5.1); SODIUM 142 mmol/L (136-145)
[2017-07-24 14:13] LABS: ALBUMIN 4.3 g/dL (3.4-5.0); ALKALINE PHOSPHATASE 58 U/L (46-116); CHOLESTEROL 110 mg/dL (<200); HDL CHOLESTEROL 50 mg/dL (>40); LDL CHOLESTEROL 36 mg/dL (<100); SERUM ASSESSMENT Clear; SGOT 21 U/L (15-37); SGPT 36 U/L (30-65); TC:HDL 2.2 Ratio (Not establshd); TOTAL BILIRUBIN 0.7 mg/dL (<0.1-1.0); TOTAL PROTEIN 8.4 g/dL (6.4-8.2); TRIGLYCERIDE 121 mg/dL (<150); VLDL 24 mg/dL (<40)
--- NOTE | 2017-07-24 15:27 | EKG ---
[place] [address] ELECTROCARDIOGRAM REPORT Name: NICOLE GONZALEZ Room: [facility]#: [id number] Admission: 07/24/17 Attend Phys: Ceferino Fontaine MD Discharge: Date of : 45 Report #: [id number] THIS REPORT FOR: //name// 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: : 1945 Requested By: Ceferino Fontaine Order Number: [id number] Reading MD: Ceferino Fontaine Measurements Intervals [place] Rate: 64 P: 70 DC: 200 QRS: 57 QRSD: 102 T: 49 QT: 398 QTc: 411 Interpretive Statements Sinus rhythm Multiple ventricular premature complexes Probable left atrial enlargement Compared to ECG 04/19/2017 05:32:48 Intraventricular conduction delay no longer present Myocardial infarct finding no longer present Electronically Signed On 07-24-2017 15:27:24 CDT by Ceferino Fontaine [email or web address] <ELECTRONICALLY SIGNED> By: Ceferino Fontaine MD, [facility] 07/24/17 1527 1404 1404 Ceferino Fontaine MD, [facility] /EPI
--- NOTE | 2017-07-28 12:47 | CARD ---
[address] [address] CARDIAC CATH REPORT Name: NICOLE GONZALEZ Room: [facility]#: [id number] Admission: 07/24/17 Attend Phys: Ceferino Fontaine MD Discharge: Date of : 45 Report #: [id number] THIS REPORT FOR: //name// APPROVED REPORT Study performed: 07/24/2017 18:16:13 Patient Details The patient is a 71 year-old male Event Personnel Ceferino Fontaine Aerologist, Michaela Fletcher RN RN, Hai Salvador Childers, James Monitor Procedure Narrative A [place] 6 FR sheath was inserted into the . Coronary angiography was performed using coronary diagnostic catheters. The right coronary system was accessed and visualized with a Diagnostic- JR4 catheter. The left coronary system was accessed and visualized with a Diagnostic-JL4 catheter. The left ventricle was accessed and visualized with a Diagnostic- PIG catheter. The patient tolerated the procedure well and there were no complications associated with the procedure. Intraoperative Conscious Sedation Sedation start time: 1815 Case end Time: 1847 Fentanyl 25 mcg Versed 2 mg Fluoro Time: 9.6 minutes Dose: DAP 43079 cGycm2 1330 mGy Contrast Type and Amount: Omnipaque 175 ml Coronary Angiography The patient's coronary anatomy is right dominant. [place] Artery Percent Stenosis Grafts (Complete if Previous CABG=Yes: Percent Stenosis) watts to lad patent but atretic , no stenosis, distal lad small diffusely diseased 50-70% , zaina to diag, om- No stenosis , SVG to RCA PDA, no stenosis Diagnostic Cath Left Main distal 40% [address] [address] CARDIAC CATH REPORT Name: NICOLE GONZALEZ Room: [facility]#: [id number] Admission: 07/24/17 Attend Phys: Ceferino Fontaine MD Discharge: Date of : 45 Report #: [id number] distal 40% LAD no instent restenosis to proximal lad stent, distal vessel small patent, no competitive flow distally Circumflex mid 40% OM1 small severe disease, 70-80% Right Coronary occluded Left Ventriculography The left ventricle is mildly dilated in size with contractility. The left ventricular ejection fraction is estimated to be 45%. Left ventricular wall motion abnormalities are present. There is no mitral insufficiency. moderate hypokinesis basal inferior wall Hemodynamics The aortic pressure is 104/54 mmHg with a mean of 70 mmHg. The left ventricular pressure is 117/8 mmHg with a mean of mmHg. The left ventricular end diastolic pressure is 21 mmHg. Conclusion patent stents in proximal lad watts atretic svg to rca patent zaina to lcx om,diag patent [place] rca occluded mild LV dysfunction Recommendations Aggressive Medical Therapy <ELECTRONICALLY SIGNED> By: Ceferino Fontaine MD, FACC 07/28/17 1247 1247 [facility]47[facility], [facility] /INF
== END | disposition home or self-care (01) ==
LOC: M.CL 13:08
PROVIDERS: Internal Medicine Cardiovascular Disease
DX: I25.82 Chronic total occlusion of coronary artery (principal); I50.1 Left ventricular failure, unspecified; E78.5 Hyperlipidemia, unspecified; K21.9 Gastro-esophageal reflux disease without esophagitis; Z98.890 Other specified postprocedural states; Z95.1 Presence of aortocoronary bypass graft; Z86.2 Personal history of diseases of the blood and blood-forming organs and certain disorders involving the immune mechanism; Z88.8 Allergy status to other drugs, medicaments and biological substances; Z79.82 Long term (current) use of aspirin; Z79.899 Other long term (current) drug therapy

== ENCOUNTER 2017-12-15 17:31 | Emergency (ER) | payer MEDICARE ==
[~2017-12-15] VITALS: Ht 175.3 cm; Wt 88.5 kg
[2017-12-15 18:10] LABS: ABSOLUTE BASOPHILS 0.1 thou/uL (0.0-0.2); ABSOLUTE EOSINOPHILS 0.1 thou/uL (0.0-0.7); ABSOLUTE LYMPHOCYTES 2.4 thou/uL (0.8-5.3); ABSOLUTE MONOCYTES 0.9 thou/uL (0.0-1.2); BASOPHILS 0.7 %; EOSINOPHILS 1.5 %; HEMATOCRIT 40.5 % (42.0-52.0); HEMOGLOBIN 13.4 gm/dL (14.0-18.0); LYMPHOCYTES 31.7 %; MCH 28.8 pg (26.0-34.0); MCHC 33.2 g/dL (28.0-37.0); MONOCYTES 11.9 %; MPV 7.6 fl. (7.2-11.1); NUCLEATED RBCS 0 /100WBC; PLATELET COUNT* 211 thou/uL (150-400); POLYS 54.2 %; RBC 4.66 mil/uL (4.50-6.00); RDW-CV 14.2 % (10.5-14.5); WBC 7.4 thou/uL (4.0-11.0)
[2017-12-15 18:19] LABS: ANION GAP 10 mmol/L (7-16); BUN 17 mg/dL (7-18); CALCIUM 9.2 mg/dL (8.5-10.1); CHLORIDE 105 mmol/L (98-107); CO2 25 mmol/L (21-32); CREATININE 1.2 mg/dL (0.6-1.3); GLUCOSE 135 mg/dL (70-99); POTASSIUM 4.2 mmol/L (3.5-5.1); SODIUM 140 mmol/L (136-145)
[2017-12-15 18:23] LABS: APTT 25.2 Seconds (25.0-31.3); PROTIME 10.6 Seconds (9.20-11.50)
[2017-12-15 18:26] LABS: ALKALINE PHOSPHATASE 51 U/L (46-116); LIPASE 187 U/L (73-393); SGOT 26 U/L (15-37); SGPT 35 U/L (30-65); TOTAL BILIRUBIN 0.5 mg/dL (<0.1-1.0); TOTAL PROTEIN 7.5 g/dL (6.4-8.2); TROPONIN-I LEVEL <0.06 ng/mL (<0.06)
[2017-12-15 19:33] LABS: URINE BILIRUBIN NEGATIVE (Negative); URINE BLOOD 3+ (Negative); URINE CLARITY CLEAR; URINE COLOR YELLOW; URINE GLUCOSE-RANDOM NEGATIVE (Negative); URINE KETONES NEGATIVE (Negative); URINE LEUKOCYTES NEGATIVE (Negative); URINE NITRITE NEGATIVE (Negative); URINE PROTEIN NEGATIVE (Negative); URINE UROBILINOGEN 0.2 E.U./dl (0.2-1.0)
[2017-12-15 20:00] LABS: MUCUS None Seen strn/LPF (None Seen); SQUAMOUS 0-3 Few /LPF (0-3); URINE RBC >20 Many /HPF (0-2); URINE WBC None Seen /HPF (0-5)
[2017-12-15 20:01] LABS: BACTERIA None Seen /HPF (None Seen); CASTS None Seen /LPF (None Seen); CRYSTALS None Seen /LPF (None Seen)
[2017-12-15 21:12] VITALS: BP 133/75
--- NOTE | 2017-12-16 10:23 | EKG ---
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 Refining: Tatyana LUNA : 1945 Requested By: Latosha Tejada Order Number: [id number] MD: Peter Jacobs Measurements Intervals [place] Rate: 92 P: 54 [place]: 192 QRS: 50 QRSD: 103 T: 42 QT: 395 QTc: 489 Interpretive Statements Sinus rhythm Ventricular bigeminy Probable left atrial enlargement Compared to ECG 07/24/2017 14:04:09 No significant changes Electronically Signed On 12-16-2017 10:23:22 POWER SHOVEL MECHANIC by Peter Jacobs [email or web address] <ELECTRONICALLY SIGNED> By: Peter Jacobs MD, [facility] 12/16/17 1023 55 55 Peter Jacobs MD, FACC /EPI
== END 2017-12-15 21:13 | disposition home or self-care (01) ==
LOC: M.ERS 17:31
PROVIDERS: Nurse Practitioner Family
DX: R10.31 Right lower quadrant pain (principal); R26.9 Unspecified abnormalities of gait and mobility; R04.2 Hemoptysis; K21.9 Gastro-esophageal reflux disease without esophagitis; E78.5 Hyperlipidemia, unspecified; Z95.1 Presence of aortocoronary bypass graft; Z88.1 Allergy status to other antibiotic agents; Z88.5 Allergy status to narcotic agent; R11.2 Nausea with vomiting, unspecified; R19.7 Diarrhea, unspecified